=== PATIENT | male | born 1950 | race African-American/Black ===

== ENCOUNTER 2016-04-22 05:35 | Emergency (ER) | payer OTHER ==
[~2016-04-22] VITALS: Ht 175.3 cm; Wt 82.5 kg
[~2016-04-22 05:35] MED LIST: CEPH-443 PO; OFLO5DRO7 RIGHT EAR
[2016-04-22 05:43] VITALS: Ht 175.3 cm; Wt 82.5 kg
[2016-04-22 07:32] LABS: BASOPHILS % 0.4 % (0.0-2.0); EOSINOPHILS # 0.1 10^3/ul (0.0-0.5); HEMOGLOBIN 12.6 g/dl (14.0-18.0); LYMPHOCYTES # 0.9 10^3/ul (0.8-2.9); LYMPHOCYTES % 18.8 % (15.0-51.0); MEAN CORPUSCULAR HEMOGLOBIN 31.3 pg (29.0-33.0); MEAN CORPUSCULAR HGB CONC 34.9 g/dl (32.0-37.0); MEAN CORPUSCULAR VOLUME 89.8 fl (82.0-101.0); MEAN PLATELET VOLUME 9.3 fl (7.4-10.4); MONOCYTE # 0.4 10^3/ul (0.3-0.9); MONOCYTES % 8.4 % (0.0-11.0); NEUTROPHIL # 3.3 10^3/ul (1.6-7.5); NEUTROPHILS % 70.4 % (39.0-77.0); PLATELET COUNT 190 10^3/UL (140-440); RED BLOOD COUNT 4.01 10^6/ul (4.70-6.10); RED CELL DISTRIBUTION WIDTH 13.3 % (11.5-14.5); UNCORRECTED WBC 4.7 10^3/ul (4.8-10.8); WHITE BLOOD COUNT 4.7 10^3/ul (4.8-10.8)
--- NOTE | 2016-04-22 07:33 | RADRPT ---
PROCEDURE: XR Chest. CLINICAL INDICATION: Chest pain TECHNIQUE: A single AP view of the chest was obtained. COMPARISON: None. FINDINGS: No focal airspace opacification, pleural effusion or pneumothorax is seen. The cardiomediastinal si lhouette is within normal limits for size. The osseous structures are unremarkable. IMPRESSION: No radiographic evidence of acute cardiopulmonary disease. RPTAT: HH .Arlen Coughlin MD, MD Date Time Electronically viewed and signed by .Arlen Coughlin MD, on 04/22/2016 07:32 .G/
[2016-04-22 07:41] LABS: CHLORIDE 104 mmol/L (97-110); INR 0.98; SODIUM 143 mmol/L (135-144)
[2016-04-22 07:42] LABS: PARTIAL THROMBOPLASTIN TIME 29.3 Sec (25.0-35.0); POTASSIUM 3.7 mmol/L (3.5-5.1)
[2016-04-22 07:43] VITALS: BP 121/83; PULSE 80; RESP 18
[2016-04-22] MEDS ORDERED: KETOROLAC 15 MG INJ IV STA (07:43)
[2016-04-22 07:44] LABS: CREATININE 1.06 mg/dl (0.61-1.24)
[2016-04-22 07:45] LABS: ANION GAP 17 (8-16); BLOOD UREA NITROGEN 21 mg/dl (7-20); CALCIUM 9.5 mg/dl (8.4-10.2); CARBON DIOXIDE 26 mmol/L (21-31); GLUCOSE 96 mg/dl (70-220)
[2016-04-22 07:56] LABS: TROPONIN-I < 0.012 ng/ml (0.00-0.12)
[2016-04-22] MEDS ORDERED: TAMS-14 PO (08:20)
[2016-04-22 08:25] LABS: CONDITION 1
--- NOTE | 2016-04-22 08:37 | ERD ---
ER Documentation Chief Complaint Date/Time DATE: 04/22/16 TIME: 08:34 Chief Complaint chest pain on and off x 1 day, worse x 4 hours HPI This is a 65-year-old male presents to the emergency room for evaluation of chest pain for the past 1 day. The patient states that he was doing a lot of sedatives and noticed that he has some pain in his chest and upper portion of his abdomen. He states that when he works out the pain usually subsides however this pain is only mildly subsided. The patient localizes the pain to the upper portion of the abdomen, no radiation, no shortness of breath, no palpitations, no numbness or tingling or diaphoresis or nausea associated with this. The patient came to the ER today for evaluation. He denies any aggravating or relieving factors ROS All systems reviewed and are negative except as per history of present illness. Medications Home Meds Reported Medications Tamsulosin Hcl* (Flomax*) 0.4 Mg Cap.er.24h, 0.4 MG PO DAILY, CAP 04/22/16 Discontinued Scripts Cephalexin* (Keflex*) 500 Mg Capsule, 500 MG PO QID for 7 Days, CAP Prov:PRISCA RIVERA PA-C 10/19/14 Ofloxacin* (Floxin* Otic) 0.3% -10 Ml Soln, 5 DROP RIGHT EAR BID for 10 Days, BOTTLE Prov:PRISCA RIVERA PA-C 10/19/14 Allergies Allergies: Coded Allergies: No Known Allergies (Verified Allergy, Unknown, 04/22/16) PMhx/Soc History of Surgery: Yes (left hernia repair) Anesthesia Reaction: No Hx Neurological Disorder: No Hx Respiratory Disorders: No Hx Cardiac Disorders: No Hx Psychiatric Problems: No Hx Miscellaneous Medical Probl: No Hx Alcohol Use: Yes (occasionally) Hx Substance Use: Yes (marijuana, last used 4 hours ago) Hx Tobacco Use: Yes Smoking Status: Former smoker Physical Exam Vitals Vital Signs Date Time Temp Pulse Resp B/P Pulse Ox O2 Delivery O2 Flow Rate FiO2 04/22/16 07:43 80 18 121/83 100 Room Air 04/22/16 05:43 98.2 110 20 151/79 98 Physical Exam INITIAL VITAL SIGNS: Reviewed by me GENERAL: The patient is well developed and appropriate for usual state of health in no apparent distress HEENT: Pupils equal, round, and reactive to light. EOMI. There is no scleral icterus. NECK: C-spine is soft and supple, there is no meningismus. There is no cervical lymphadenopathy. LUNGS: Clear to auscultation bilaterally. There are no rales, wheezes or rhonchi. HEART: Regular rate and rhythm, no murmurs, clicks, rubs or gallops. ABDOMEN: Soft, non-tender, non-distended. There are bowel sounds in all four quadrants. No rebound or guarding. EXTREMITIES: There is no peripheral cyanosis or edema. No focal swelling or erythema. NEUROLOGICAL: The patient moves all four extremities with 5/5 strength. Cranial nerves II - XII are intact. Normal gait. Alert and oriented SKIN: There is no apparent rash or petechiae. Musculoskeletal: Tenderness to palpation in the anterior chest wall HEME/LYMPHATIC: There is no evidence of excessive bruising or lymphedema. PSYCHIATRIC: The patient does not appear anxious or depressed. Result Diagram: 04/22/16 0700 04/22/16 0700 Results 24 hrs Laboratory Tests Test 04/22/16 07:00 Activated Partial Thromboplast Time 29.3Sec Anion Gap 17 Basophils # 0.010^3/ul Basophils % 0.4% Blood Urea Nitrogen 21mg/dl Calcium Level 9.5mg/dl Carbon Dioxide Level 26mmol/L Chloride Level 104mmol/L Creatinine 1.06mg/dl Eosinophils # 0.110^3/ul Eosinophils % 2.0% Glucose Level 96mg/dl Hematocrit 36.0% Hemoglobin 12.6g/dl INR International Normalized Ratio 0.98 Lymphocytes # 0.910^3/ul Lymphocytes % 18.8% Mean Corpuscular Hemoglobin 31.3pg Mean Corpuscular Hemoglobin Concent 34.9g/dl Mean Corpuscular Volume 89.8fl Mean Platelet Volume 9.3fl Monocytes # 0.410^3/ul Monocytes % 8.4% Neutrophils # 3.310^3/ul Neutrophils % 70.4% Nucleated Red Blood Cells # 0.010^3/ul Nucleated Red Blood Cells % 0.0/100WBC Platelet Count 18701^3/UL Potassium Level 3.7mmol/L Prothrombin Time 13.0Sec Prothrombin Time Ratio 1.0 Red Blood Count 4.0110^6/ul Red Cell Distribution Width 13.3% Sodium Level 143mmol/L Troponin I < 0.012ng/ml White Blood Count 4.710^3/ul Current Medications Medications (Trade) Dose Ordered Sig/Wilmer Route PRN Reason Start Time Stop Time Status Last Admin Dose Admin Ketorolac Tromethamine (Toradol) 15 mg ONCE STAT IV 04/22/16 07:43 04/22/16 07:44 DC 04/22/16 07:47 Procedures/MDM EKG: Rate/Rhythm: Sinus tachycardia QRS, ST, T-waves: [No changes consistent w/ acute ischemia] Impression: [No evidence of ischemia or arrhythmia] Chest X-ray 1V Interpreted by me: Soft Tissue: No acute abnormalities Bones: No acute abnormalities Mediastinum/Cardiac Silhouette/Lungs: [No acute abnormalities] This 65-year-old male presents to the ER for evaluation of chest pain and abdominal pain. When I evaluated him he did have reproducible pain on palpation. The patient had lab work drawn including a troponin which was normal. His EKG was sinus tachycardia, however after the patient was given Toradol and I reevaluated him his oxygen level is 100%, and his pulse is 88 bpm. He is hemodynamically stable, states is feeling better after Toradol. I do feel his chest pain and upper abdominal pain is secondary to muscle strain. I talked him about this, and he states that he feels it is also muscle strain and he has had this in the past. The patient states he does not have high blood pressure, no diabetes, he is not a smoker, with no family history of NE. I advised the patient he will need an outpatient stress test and to follow-up with his primary care physician. He verbalized understanding, and will be discharged home with a prescription for Motrin, and instructions to return to the ER if his chest pain worsens. Differential diagnoses entertained was broad with potential high acuity. Patient has been evaluated for acute myocardial infarction, unstable angina, aortic dissection, pulmonary embolism, other intrathoracic and cardiac concerns. Ultimately the patient's evaluation is nondiagnostic. Based on the patient's lack of risk factors, as well as the patient's clinical, laboratory, and imaging data, the patient appears to be low risk for these high risk causes of chest pain. Departure Diagnosis: Primary Impression: Chest pain Additional Impressions: Muscle strain Normocytic anemia Condition: Stable CHANNING WISE DO Apr 22, 2016 08:37
[2016-04-22] MEDS ORDERED: IBUP800T25 PO (08:38)
== END 2016-04-22 09:11 | disposition home or self-care (01) ==
LOC: E/R 05:35
DX: S29.011A Strain of muscle and tendon of front wall of thorax, initial encounter (principal); R40.2252 Coma scale, best verbal response, oriented, at arrival to emergency department; D64.9 Anemia, unspecified; R07.9 Chest pain, unspecified; R40.2362 Coma scale, best motor response, obeys commands, at arrival to emergency department; R40.2142 Coma scale, eyes open, spontaneous, at arrival to emergency department; X58.XXXA Exposure to other specified factors, initial encounter; Y92.9 Unspecified place or not applicable; Z87.891 Personal history of nicotine dependence
CPT/HCPCS: 71010; 80048; 84484; 85025; 85610; 85730; 93005; J1885; 36415; 96374

== ENCOUNTER 2017-07-02 03:12 | Emergency (ER) | END 2017-07-02 09:26 | disposition home or self-care (01) ==

== ENCOUNTER 2017-08-31 03:40 | Emergency (ER) | END 2017-08-31 05:13 | disposition left against medical advice (07) ==

== ENCOUNTER 2017-08-31 23:49 | Emergency (ER) | END 2017-09-01 07:18 | disposition home or self-care (01) ==

== ENCOUNTER 2018-02-03 02:30 | Emergency (ER) | END 2018-02-03 04:38 | disposition home or self-care (01) ==

== ENCOUNTER 2018-05-29 16:27 | Emergency (ER) | payer OTHER ==
[~2018-05-29] VITALS: Ht 175.3 cm; Wt 80.7 kg
[~2018-05-29 16:27] MED LIST changes: +CARI350T29 PO; -CEPH-443 PO; +HYDR-3980 PO; +IBUP800T48 PO; +MELO7.5T38 PO; +NAPR-685 PO; +NEO/5DRO22 RIGHT EYE; -OFLO5DRO7 RIGHT EAR; +POLY10DR19 BOTH EYES; +POLY17PO6 PO; +TAMS-14 PO
[2018-05-29 16:30] VITALS: BP 127/70; PULSE 101; RESP 18; Ht 175.3 cm; Wt 80.7 kg
[2018-05-29] MEDS ORDERED: KETOROLAC 30 MG INJ IV STA (20:13)
[2018-05-29] MEDS ORDERED: DIAZEPAM 5 MG TAB PO ONE (20:30)
--- NOTE | 2018-05-29 20:41 | ERD ---
ER Documentation Chief Complaint Chief Complaint Neck, chest wall pain X 1 day HPI 67 yo M who presents to the emergency room complaining of chest wall pain and right lateral neck pain for approximately 24-48 hours. He states that it may be longer proximal he 1 week. He states that when he was reaching forward he felt a pulling sensation and since then has had pain. Pain is improved with nonsteroidal anti-inflammatory. No exertional symptoms no diaphoresis and no pleuritic discomfort. He does suffer from chronic pain, chronic arthritis and takes Soma. ROS All systems reviewed and are negative except as per history of present illness. Medications Home Meds Active Scripts Polyethylene Glycol* (Miralax*) 17 Gm Powd.pack, 17 GM PO DAILY, #7 Prov:REGINALD MI MD 02/03/18 Polymyxin B Sulfate-TMP* (Polymyxin B-TMP Eye Drops*) 10 Ml Drops, 1 DROP BOTH EYES QID for 7 Days, EA Prov:REGINALD MI MD 02/03/18 Meloxicam* (Meloxicam*) 7.5 Mg Tablet, 7.5 MG PO DAILY, #30 TAB Prov:LEMUEL ROCHE PA-C 07/02/17 Ibuprofen* (Motrin*) 800 Mg Tab, 800 MG PO Q6H PRN for PAIN AND OR ELEVATED TEMP, #30 TAB Prov:CHANNING WISE DO 04/22/16 Reported Medications Neomycin/Polymyxin/Dexameth* (Maxitrol*) 5 Ml Drops, 1 DROP RIGHT EYE QID, EA 02/03/18 Hydrocodone/Acetaminophen (Mckinney 10-325 Tablet) 1 Each Tablet, 1 EACH PO, TAB 02/03/18 Naproxen* (Naproxen*) 375 Mg Tablet, 375 MG PO BID PRN for PAIN LEVEL 1-5, TAB 02/03/18 Carisoprodol* (Carisoprodol*) 350 Mg Tablet, 350 MG PO Q8 PRN for MUSCLE SPASMS, TAB 02/03/18 Tamsulosin Hcl* (Flomax*) 0.4 Mg Cap.er.24h, 0.4 MG PO DAILY, CAP 04/22/16 Allergies Allergies: Coded Allergies: No Known Allergies (Unverified Allergy, Unknown, 02/03/18) PMhx/Soc History of Surgery: Yes (left hernia repair) Anesthesia Reaction: No Hx Neurological Disorder: No Hx Respiratory Disorders: No Hx Cardiac Disorders: No Hx Psychiatric Problems: No Hx Miscellaneous Medical Probl: Yes (ARTHRITIS, BPH, SCIATICA) Hx Alcohol Use: Yes (occasionally) Hx Substance Use: Yes (marijuana daily) Hx Tobacco Use: Yes Smoking Status: Former smoker FmHx Family History: No diabetes Physical Exam Vitals Vital Signs Date Temp Pulse Resp B/P (MAP) Pulse Ox O2 O2 Flow FiO2 Time Delivery Rate 05/29/18 97.3 101 18 127/70 97 16:30 (89) Physical Exam General: Well developed, well nourished, no acute distress Head: Normocephalic, atraumatic. Eyes: Pupils equally reactive, EOM intact ENT: Moist mucous membranes Neck: Supple, no lymphadenopathy, reproducible right paraspinal soft tissue te nderness along the strap muscles of the neck without midline tenderness deformities or step-offs Respiratory: Lungs clear bilaterally, no distress Cardiovascular: RRR, no murmurs, rubs, or gallops, reproducible anterior chest wall tenderness Abdominal: Soft, non-tender, non-distended, no peritoneal signs : Deferred MSK: No edema, no unilateral swelling, 5/5 strength Neurologic: Alert and oriented, moving all extremities, normal speech, no focal weakness, no cerebellar signs Skin: No rash Psych: Normal mood Results 24 hrs Current Medications Medications Dose Sig/Wilmer Start Time Status Last (Trade) Ordered Route PRN Stop Time Admin Dose Reason Admin Ketorolac 30 mg ONCE STAT 05/29/18 DC Tromethamine IV 20:13 (Toradol) 05/29/18 20:14 Diazepam 5 mg ONCE ONCE 05/29/18 DC (Valium) PO 20:30 05/29/18 20:31 Procedures/MDM EKG, MONITORS, & DIAGNOSTIC IMAGING: EKG: I reviewed and interpreted a 12-lead EKG. Rhythm: Normal sinus rhythm ST Changes: No contiguous ST segment elevations T waves: No contiguous T wave inversions Impression: [No evidence of acute cardiac ischemia] LAB INTERPRETATION: Patient left prior to results MEDICAL DECISION MAKING: Patient's clinical exam and presentation are very consistent with muscular skeletal etiology. The patient has a clear exacerbating event, reproducible symptoms at the bedside and no exertional symptoms of be concerning for cardiac etiology, no evidence of pleuritic pain concerning for pulmonary embolism and no migratory pain concerning for dissection. However, given the patient's age it would be prudent to check laboratory testing, EKG and chest x-ray. Reassurance provided. ER COURSE: * I was in a critical case and I was notified by the nurse of the patient states that he needs to leave the emergency room. She notified him of the risk benefits alternatives and had capacity and informed decision making. He left prior to me being able to speak with him. CONSULTATION: [None] DISPOSITION PLAN: Patient left prior to completion of workup. Departure Diagnosis: Primary Impression: Chest wall pain Additional Impression: Acute cervical sprain Encounter type: initial encounter Qualified Codes: S13.9XXA - Sprain of joints and ligaments of unspecified parts of neck, initial encounter Condition: Stable MARY MAYER MD May 29, 2018 20:41
== END 2018-05-29 20:33 | disposition left against medical advice (07) ==
LOC: E/R 16:27
DX: S29.001A Unspecified injury of muscle and tendon of front wall of thorax, initial encounter (principal); S13.9XXA Sprain of joints and ligaments of unspecified parts of neck, initial encounter; R07.89 Other chest pain; X58.XXXA Exposure to other specified factors, initial encounter; Y92.9 Unspecified place or not applicable; Z87.891 Personal history of nicotine dependence
CPT/HCPCS: 36415; 93005